=== PATIENT | male | born 1955 | race Native Hawaiian/Other Pacific Islander ===

== ENCOUNTER 2022-08-21 08:49 | Outpatient (CLI) | payer OTHER | END 2022-08-21 18:56 | disposition home or self-care (01) | LOC: CT 08:49 | PROVIDERS: ATTEND Nurse Practitioner Family | DX: I10 Essential (primary) hypertension (principal); R19.09 Other intra-abdominal and pelvic swelling, mass and lump; E78.49 Other hyperlipidemia; Z86.79 Personal history of other diseases of the circulatory system; Z87.898 Personal history of other specified conditions; Z09 Encounter for follow-up examination after completed treatment for conditions other than malignant neoplasm | CPT/HCPCS: 36415; 82565; 84520; Q9963 ==